=== PATIENT | female | born 1975 | race Caucasian/White ===

== ENCOUNTER → 2016-12-03 | Outpatient (CLI) | payer OTHER ==
--- NOTE | ~2016-12-03 | MR113 ---
[facility] A Service of [facility] RADIOLOGY TEXT RESULTS PATIENT: SAM GARCIA LOCATION: [facility] : 71 UNIT #: [id number] AGE: [address]: MARY KAY HOFFMANN APRN SEX: F ORDER DR: [id number] [address] [id number] O MR#: [id number] Acc #: [id number] NAME: SAM GARCIA : 1975 SEX: F STUDY DATE/TIME: 12/03/2016 12:50 UNIT: [facility] ROOM: STUDY DESCRIPTION: MR Lumbar Wo Contrast Attending Physician: Kristin Garcia Referring Physician: Kristin Garcia Ordering Physician: Physician Non-Staff Primary Care Physician: Kristin Garcia MRI CENTER REPORT This report is preliminary unless electronic signature is present. EXAM MRI of the lumbar spine without contrast, 12/03/2016 COMPARISON Plain films lumbar spine, 10/27/2016 HISTORY Low back pain for 2-3 years. Pain radiates to the right side down the right leg. FINDINGS Multi-sequence, multiplanar imaging of the lumbar spine was obtained without contrast. Sagittal STIR sequence was repeated due to motion artifact. Vertebral body heights are relatively preserved with small Schmorl's nodes. No acute fracture. Degenerative disc signal loss is seen from L2-3 to L4-5. Conus terminates at T12-L1. Signal of conus and cauda equina are within normal limits. Prominence of the posterior epidural fat is noted at the level of L3-4 and L4-5 causing mass effect on the thecal sac. Mild disc bulge is noted at T11-12 with suspicious tiny central protrusion without any significant canal stenosis or cord compression. There are facet changes at multiple levels, particularly in bilateral L4-5, right L5-S1 and bilateral L3-4 facet joints. There appears to be bilateral L4, left L5 and to a lesser degree right L5 pedicle edema. There are some fatty changes also associated with the right L4 pedicle. Mild edema is noted in the soft tissues around the facet joints adjacent to the hypertrophic changes. No drainable abscess collections or joint fluid is seen. Axial T2 sequence was repeated due to motion artifact. L1-2: Unremarkable except for minimal bilateral facet change. [facility] A Service of [facility] RADIOLOGY TEXT RESULTS PATIENT: SAM GARCIA LOCATION: [facility] : 71 UNIT #: [id number] AGE: [address]: MARY KAY HOFFMANN DRAWING BOX TENDER SEX: F ORDER DR: L2-3: Mild disc bulge with minimal bilateral facet changes particularly in the left. L3-4: Moderate disc bulge with superimposed central focal moderate protrusion. Moderate right and mild to moderate left facet hypertrophic changes are noted with ligamentum flavum thickening. Severe mass effect is noted on the thecal sac with mild left lateral recess stenosis and mild left neural foraminal narrowing. L4-5: Concentric disc bulge with very severe right and severe left facet hypertrophic change with small amount of joint fluid particularly in the left facet. Very severe canal stenosis is seen with mild bilateral neural foraminal narrowing. Mild edema is noted in the adjacent parafacet joints soft tissue. L5-S1: Severe right and mild left L5-S1 facet changes are noted with tiny amount of left facet joint fluid. No canal stenosis or neural foraminal narrowing. IMPRESSION 1. Motion artifact is noted in multiple sequences with repeats of sagittal T2 STIR and axial T2 sequences. 2. Degenerative changes are at multiple levels, worse at L4-5 with very severe canal stenosis and bilateral facet changes with edema in the adjacent parafacet joint soft tissue. Mild bilateral neural foraminal encroachment is also seen. 3. There appears to be bilateral L4, left L5 and to a lesser degree right L5 pedicle edema. It could be related to the nearby facet hypertrophic changes. No drainable abscess collections or joint fluid is seen. Microtrabecular injury is next in the differential consideration. 4. Next worst level is L3-4. Dictated by... Chelsie George M.D. THIS IS AN ELECTRONICALLY VERIFIED REPORT Chelsie George M.D. at 12/08/2016 4:50 PM CELINA/isa TD: 12/04/2016 13:52 JOB #: [id number] MRI CENTER REPORT [facility] A Service of [facility] RADIOLOGY TEXT RESULTS PATIENT: SAM GARCIA LOCATION: [facility] : 71 UNIT #: [id number] AGE: [address]: MARY KAY HOFFMANN APRN SEX: F ORDER DR: Page 1 of 1
== END | disposition home or self-care (01) ==
LOC: SMRI 12:10
DX: M47.26 Other spondylosis with radiculopathy, lumbar region (principal); M54.40 Lumbago with sciatica, unspecified side; M48.06 Spinal stenosis, lumbar region; R60.0 Localized edema
CPT/HCPCS: 72148